=== PATIENT | female | born 1950 | race Caucasian/White ===

== ENCOUNTER 2019-12-14 12:22 | Emergency (ER) | payer MEDICARE, OTHER ==
[2019-12-14] MEDS ORDERED: Albuterol/Ipratropium NEB.SOL* Albuterol 2.5 MG/Ipratropium 0.5 MG 3 ML INH ONE (12:52)
[2019-12-14 12:53] VITALS: BP 146/77
--- NOTE | 2019-12-14 13:13 | UC ---
Respiratory Complaint HPI - HPI Summary HPI Summary: 69 year old female with history of COPD presents for 1 week history of progressively worsening cough, SOB, and fatigue. Associated with some chills but no measured fever. Cough has been occasionally productive for clear sputum. States she had similar symptoms approximately 2 months ago and was evaluated by her primary who treated her for a COPD exacerbation with a course of prednisone. Had a negative X-ray at that time. Reports cough improved but never completely resolved but has been tolerable until 1 week ago. Denies nasal congestion, sore throat, ear pain/fullness, chest pain, palpitations, abdominal pain, nausea, or vomiting. - History of Current Complaint Chief Complaint: UCGeneralIllness Stated Complaint: RESPIRATORY ISSUE Time Seen by Provider: 12/14/19 12:48 Hx Obtained From: Patient Pain Intensity: 0 - Allergies/Home Medications Allergies/Adverse Reactions: Allergies Allergy/AdvReac Type Severity Reaction Status Date / Time No Known Allergies Allergy Verified 12/14/19 12:53 PMH/Surg Hx/FS Hx/Imm Hx Cardiovascular History: Hypertension Respiratory History: COPD - Surgical History Surgical History: None - Family History Known Family History: Positive: Non-Contributory - Social History Occupation: Retired Lives: With Family Alcohol Use: Occasionally Substance Use Type: None Smoking Status (MU): Light Every Day Tobacco Smoker Amount Used/How Often: 1/2 PPD FOR 40 YEARS Length of Time of Smoking/Using Tobacco: 40 YEARS Have You Smoked in the Last Year: Yes - USING NICOTINE PATCH TO TRY TO QUIT When Did the Patient Quit Smoking/Using Tobacco: USING NICOTINE PATCH TO TRY TO QUIT Review of Systems All Other Systems Reviewed And Are Negative: Yes Constitutional: Positive: Chills, Fatigue. Negative: Fever Eyes: Negative: Drainage, Eye Redness ENT: Negative: Sore Throat, Ear Ache, Nasal Discharge, Sinus Congestion, Sinus Pain/Tenderness Respiratory: Positive: Shortness Of Breath, Cough Cardiovascular: Negative: Palpitations, Chest Pain Gastrointestinal: Negative: Abdominal Pain, Vomiting, Diarrhea, Nausea Genitourinary: Positive: Negative Musculoskeletal: Positive: Negative Neurological: Positive: Negative Is Patient Immunocompromised?: No Physical Exam - Summary Physical Exam Summary: GENERAL APPEARANCE: Thin, alert and cooperative female who appears to be in no acute distress. EYES: Conjunctiva clear. No drainage. EARS: External auditory canals and tympanic membranes clear, hearing grossly intact. NOSE: No nasal discharge. THROAT: Pharynx normal. No tonsilar inflammation, swelling, exudate, or lesions. Uvula midline. NECK: Neck supple, non-tender without lymphadenopathy. CARDIAC: Normal S1 and S2. No S3, S4 or murmurs. Rhythm is regular. There is no peripheral edema, cyanosis or pallor. Extremities are warm and well perfused. Capillary refill is less than 2 seconds. Peripheral pulses intact. LUNGS: Diminished bilateral breath sounds. Harsh, bronchospastic cough. ABDOMEN: Positive bowel sounds. Soft, nondistended, nontender. No guarding or rebound. No masses or hepatosplenomegally. MUSKULOSKELETAL: ROM intact to all extremities. No joint erythema or tenderness. Normal muscular development. Normal gait. SKIN: Skin normal color, texture and turgor with no lesions or eruptions. Triage Information Reviewed: Yes Vital Signs: Initial Vital Signs Temp 98.6 F 12/14/19 12:49 Pulse 72 12/14/19 12:49 Resp 18 12/14/19 12:49 BP 146/77 12/14/19 12:49 Pulse Ox 96 12/14/19 12:49 Vital Signs Reviewed: Yes Diagnostics - Radiology No standard instances Radiology Interpretation Completed By: Radiologist Summary of Radiographic Findings: Order Information: CHEST PA LAT 2 VWS. INDICATION: Cough, shortness of breath and COPD. COMPARISON: There are no relevant prior studies available for comparison. . FINDINGS: The heart is within normal limits in size. Mediastinal and hilar contours appear within normal limits. The lungs are hyperinflated. There appears to be an infiltrate in the right lobe which has a more masslike appearance on the lateral film. The lungs are otherwise clear. No pleural effusion is seen. The results of this exam were called to referring clinician. IMPRESSION: 1. RIGHT MIDDLE LOBE INFILTRATE WHICH HAS MASSLIKE APPEARANCE ON THE LATERAL FILM. RECOMMEND A CT OF THE CHEST WITH CONTRAST FOR FURTHER EVALUATION. 2. COPD. Respiratory Course/Dx - Course Course Of Treatment: 69 year old female with history of COPD presents for 1 week history of progressively worsening cough, SOB, and fatigue. Associated with some chills but no measured fever. Cough has been occasionally productive for clear sputum. States she had similar symptoms approximately 2 months ago and was evaluated by her primary who treated her for a COPD exacerbation with a course of prednisone. Had a negative X-ray at that time. Reports cough improved but never completely resolved but has been tolerable until 1 week ago. Denies nasal congestion, sore throat, ear pain/fullness, chest pain, palpitations, abdominal pain, nausea, or vomiting. Afebrile. Hypertensive otherwise vital signs stable. Patient's had diminished bilateral breath sounds with a harsh, bronchospastic cough. Remainder of exam was unremarkable. She was given prednisone 60 mg and a DuoNeb nebulizer treatment with improvement in air exchange and in her cough. CXR showed an infiltrate in the right lobe which has a more masslike appearance on the lateral film. Results were reviewed with the patient. We discussed that she will need to have a CT scan of the chest as an outpatient to further evaluate this finding as we do not have CT available at this time. She is to contact her primary care provider Monday morning to arrange for the CT scan. We will treat her for a likely CAP with Augmentin 875 BID x 10 days as well as a course of azithromycin because of her COPD and smoking history. We will also continue her on prednisone 50 mg daily for the next 4 days as well as provider her with an albuterol inhaler and Tessalon Perles to use as needed for SOB/ wheezing and cough. She is to follow up with her PCP in 3-5 days. Anticipatory guidance and warning symptoms were reviewed with the patient. Verbalizes understanding and agrees with POC. - Differential Dx/Diagnosis Differential Diagnosis/HQI/PQRI: Bronchitis, Exacerbation Of COPD, Lower Resp Infection Provider Diagnosis: CAP (community acquired pneumonia), COPD exacerbation, Mass of middle lobe of right lung Discharge ED - Sign-Out/Discharge Documenting (check all that apply): Patient Departure All imaging exams completed and their final reports reviewed: Yes - Discharge Plan Condition: Stable Disposition: HOME Prescriptions: Albuterol HFA INHALER* [Ventolin HFA Inhaler*] 2 puff INH Q4H PRN #1 mdi PRN Reason: Sob/Wheezing Amoxicillin/Clavulanate TAB* [Augmentin TAB 875*] 875 mg PO BID #20 tab Azithromyxin ROHINI (NF) [Z-Rohini (Zithromax) 250 mg tabs #6] 2 tab PO .TODAY, THEN 1 DAILY #6 tab Benzonatate CAP* [Tessalon 100 MG CAP*] 100 mg PO TID PRN #21 cap PRN Reason: Cough predniSONE 50 mg TAB [Deltasone 50 mg TAB] 50 mg PO DAILY #4 tab Patient Education Materials: Community Acquired Pneumonia (ED) Referrals: Shayne Moreno MD [Primary Care Provider] - Additional Instructions: The x-ray performed in the clinic today showed an infiltrate in the right lobe which has a more masslike appearance on the lateral film. This is likely pneumonia however I cannot rule out a lung mass at this time. It is recommended that you have this further evaluated with a CT of the chest as an outpatient as we do not have CT available at this time. With your history of COPD we will treat you with 2 different antibiotics to provide better coverage for all the possible pathogens. Start Augmentin 875 mg 1 tab twice a day for 10 days. Take with food to avoid upset stomach. Start azithromycin 2 tabs today then 12 tab a day for the next 4 days. Take prednisone 50 mg 1 tab daily for next 4 days. We gave you a dose in the clinic today. Use albuterol inhaler 2 puffs every 4-6 hours as needed for shortness of breath or wheezing. Take Tessalon Perles 1 cap every 8 hours as needed for cough. Get plenty of rest. Drink plenty of fluids. Run a cool mist humidifer in your room at night. Take over the counter acetaminophen (Tylenol) or ibuprofen (Advil, Motrin) according to directions as needed for pain or fever. Follow up with your primary care provider in 3-5 days. You should call Monday morning for an appointment. Seek immediate medical attention in the emergency room if you have fever greater than 100.5 F despite taking acetaminophen or ibuprofen, have chest pain , difficulty breathing, or have any worsening of symptoms. - Billing Disposition and Condition Condition: STABLE Disposition: Home
== END 2019-12-14 14:18 | disposition home or self-care (01) ==
LOC: UCEAST 12:22
DX: J44.1 Chronic obstructive pulmonary disease with (acute) exacerbation (principal); J18.9 Pneumonia, unspecified organism; R91.8 Other nonspecific abnormal finding of lung field; I10 Essential (primary) hypertension; F17.210 Nicotine dependence, cigarettes, uncomplicated
CPT/HCPCS: 71046; 99202; A9270-GY; G0463; J7512

== ENCOUNTER 2024-11-16 19:55 | Inpatient (IN) ==
[2024-11-16 20:31] LABS: Venous Bicarbonate HCO3 28.2 mmol/L (24-28)
[2024-11-16 20:35] LABS: Hematocrit 35.2 % (35-45); Hemoglobin 11.9 g/dL (11.5-14.3); Mean Corpuscular Hemoglobin 32.2 pg (27-33); Mean Corpuscular Hgb Conc 33.7 g/dL (31-36); Mean Corpuscular Volume 95.6 fL (80-97); Mean Platelet Volume 9.2 fL (7.5-11.2); Platelet Count 219 10^3/uL (150-450); Red Blood Count 3.68 10^6/uL (3.63-4.92); Red Cell Distribution Width 12.7 % (12-17); White Blood Count 18.1 10^3/uL (3.8-11.8)
[2024-11-16] MEDS: cefTRIAXone 1 gm/50 mL D5W 1 GM/50 ML BAG IV ONE (21:00)
[2024-11-16 21:05] LABS: Albumin 3.8 g/dL (3.5-5.7); Albumin/Globulin Ratio 1.5 (1-3); Calcium 9.2 mg/dL (8.6-10.3); Creatinine, Serum 0.73 mg/dL (0.51-0.95); Globulin 2.6 g/dL (2-4); Potassium 3.3 mmol/L (3.5-5.0); Total Bilirubin 0.4 mg/dL (0.2-1.0); Total Protein 6.4 g/dL (6.4-8.9); eGFR CKD-EPI 85.7 (>60)
[2024-11-16] MEDS: Azithromycin 500 mg/250 ml NS 500 MG/250 ML BAG IVPB ONE (21:24)
[2024-11-16 21:38] LABS: ABS Eosinophils 0.1 10^3/uL (0.0-0.5); ABS Lymphocytes 0.6 10^3/uL (1.0-4.8); ABS Monocytes 2.2 10^3/uL (0.0-0.9); ABS Neutrophils 15.2 10^3/uL (1.5-7.6); Eosinophil % 0.3 %; Lymphocyte % 3.3 %
[2024-11-16] MEDS: Iohexol 350 (CONTRAST) 500 ML MDV IV ONE (22:56)
[2024-11-16] MEDS: Enoxaparin 30 MG/0.3 ML SYR SUBCUT SCH (23:33)
[2024-11-16] MEDS ORDERED: Albuterol/Ipratropium NEB.SOL (2.5/0.5 MG) 3 ML NEB.SOLN INH PRN (23:43)
[2024-11-17] MEDS: Potassium Chloride LIQUID 20 MEQ/15 ML LIQUID PO ONE (00:03)
[2024-11-17 06:56] LABS: Hematocrit 32.8 % (35-45); Hemoglobin 11.1 g/dL (11.5-14.3); Mean Corpuscular Hemoglobin 32.7 pg (27-33); Mean Corpuscular Hgb Conc 33.8 g/dL (31-36); Mean Corpuscular Volume 96.7 fL (80-97); Mean Platelet Volume 9.4 fL (7.5-11.2); Platelet Count 205 10^3/uL (150-450); Red Blood Count 3.39 10^6/uL (3.63-4.92); Red Cell Distribution Width 12.5 % (12-17); White Blood Count 18.2 10^3/uL (3.8-11.8)
[2024-11-17 07:04] LABS: Albumin/Globulin Ratio 1.2 (1-3); Calcium 8.2 mg/dL (8.6-10.3); Creatinine, Serum 0.56 mg/dL (0.51-0.95); Globulin 2.5 g/dL (2-4); Potassium 4.4 mmol/L (3.5-5.0); Total Bilirubin 0.3 mg/dL (0.2-1.0); Total Protein 5.5 g/dL (6.4-8.9); eGFR CKD-EPI 95.1 (>60)
[2024-11-17 07:25] LABS: ABS Eosinophils 0.1 10^3/uL (0.0-0.5); ABS Monocytes 2.5 10^3/uL (0.0-0.9); ABS Neutrophils 14.6 10^3/uL (1.5-7.6); Eosinophil % 0.3 %; Lymphocyte % 5.5 %
[2024-11-17 08:02] LABS: Magnesium 1.9 mg/dL (1.9-2.7)
[2024-11-17] MEDS: Magnesium Sulfate 2 gm BAG 2 GM/50 ML BAG IVPB ONE (09:56)
[2024-11-17] MEDS ORDERED: Albuterol 2.5mg/3 ml (0.083%) NEB.SOLN INH PRN (12:29)
[2024-11-17] MEDS: cefTRIAXone 2 gm/50 mL D5W 2 GM/50 ML BAG IV SCH (14:47)
[2024-11-17] MEDS: Azithromycin 500 mg/250 ml NS 500 MG/250 ML BAG IVPB SCH (19:40)
[2024-11-17] MEDS: Mometasone/Formoter 100/5 MDI INH SCH (19:48)
[2024-11-18 06:24] LABS: ABS Eosinophils 0.1 10^3/uL (0.0-0.5); ABS Lymphocytes 1.3 10^3/uL (1.0-4.8); ABS Monocytes 1.3 10^3/uL (0.0-0.9); ABS Neutrophils 7.5 10^3/uL (1.5-7.6); Eosinophil % 1.4 %; Hematocrit 30.7 % (35-45); Hemoglobin 10.6 g/dL (11.5-14.3); Lymphocyte % 12.8 %; Mean Corpuscular Hemoglobin 33.1 pg (27-33); Mean Corpuscular Hgb Conc 34.4 g/dL (31-36); Mean Corpuscular Volume 96.1 fL (80-97); Platelet Count 238 10^3/uL (150-450); Red Blood Count 3.19 10^6/uL (3.63-4.92); Red Cell Distribution Width 12.6 % (12-17); White Blood Count 10.3 10^3/uL (3.8-11.8)
[2024-11-18 06:56] LABS: Calcium 8.8 mg/dL (8.6-10.3); Creatinine, Serum 0.53 mg/dL (0.51-0.95); Magnesium 1.8 mg/dL (1.9-2.7); eGFR CKD-EPI 96.4 (>60)
[2024-11-18] MEDS: Magnesium Sulfate 2 gm BAG 2 GM/50 ML BAG IVPB ONE (08:53)
[2024-11-18] MEDS: SPIRIVA Respimat (tiotropium) 2.5 mcg/inh Inhaler INH SCH (12:48)
[2024-11-18 13:33] VITALS: BP 158/82
[2024-11-18] MEDS: Azithromycin 500 mg/250 mL NS IVPB ONE (15:06)
== END 2024-11-18 17:30 | disposition home or self-care (01) | DRG 871 ==
LOC: ED 19:55 → EDHOLD 19:55 → SUATTDRO 21:17 → MED 22:26
PROVIDERS: ADMIT Hospitalist; ATTEND Student in an Organized Health Care Education/Training Program